=== PATIENT | female | born 1945 | race Two or more races ===

== ENCOUNTER → 2017-01-26 | Outpatient (CLI) | payer OTHER ==
[~2017-01-26] MED LIST: ATEN100T PO; CEPH-368 PO; ESTR42.53 TP; GADOBUTROL 7.5 MMOL/7.5 ML PFS ONE; OXYC-302 PO
== END | disposition home or self-care (01) ==
LOC: CFH 09:27
PROVIDERS: ATTEND Psychiatry & Neurology Neurology
DX: G31.9 Degenerative disease of nervous system, unspecified (principal)
CPT/HCPCS: 70553; 82565; A9585